=== PATIENT | female | born 1980 | race African-American/Black ===

== ENCOUNTER 2024-07-13 09:28 | Emergency (ER) | payer OTHER, SELFPAY ==
[~2024-07-13 09:28] MED LIST: Iopamidol 370 76% 100 ML VIAL ONE
[2024-07-13] MEDS ORDERED: Acetaminophen 500 MG TAB ONE (09:48)
[2024-07-13] MEDS ORDERED: Lactated Ringer's 1,000 ML ONE ×2 (09:56→11:36)
[2024-07-13] MEDS ORDERED: Ketorolac Tromethamine 30 MG (1 mL) VIAL ONE (09:56)
[2024-07-13 10:30] LABS: BHCG - Serum Negative (NEGATIVE); Pregs Control Background? CLEAR/WHITE (CLR/WHITE); Pregs Control Bar Appear? YES (CONTROL BAR)
[2024-07-13 10:31] LABS: INR-International Normal Ratio 1.2; Prothrombin Time 14.8 sec (12.0-14.7)
[2024-07-13 10:32] LABS: PTT 38.2 sec (22.9-36.1)
[2024-07-13] MEDS ORDERED: Azithromycin 500 MG VIAL ONE (10:35)
[2024-07-13] MEDS ORDERED: Sodium Chloride 0.9% 250 ML 250 ML ONE (10:35)
[2024-07-13 10:40] LABS: ALT (SGPT) 23 U/L (8-55); AST (SGOT) 11 U/L (5-34); Albumin 3.3 g/dL (3.5-5.0); Alkaline Phosphatase 199 U/L (40-110); Anion Gap 17 mmol/L (10-20); BUN (Urea Nitrogen) 20 mg/dL (7.0-18.7); Bilirubin, Total 1.1 mg/dL (0.2-1.2); Calc. Creatinine Clearance 0 mL/min (70-130); Carbon Dioxide 20 mmol/L (22-29); Estimated GFR 47; Globulin 4.1 g/dL (2.4-3.5); Glucose 172 mg/dL (70-105); Potassium 3.7 mmol/L (3.5-5.1); Protein, Total 7.4 g/dL (6.0-8.3); Sodium 137 mmol/L (136-145)
[2024-07-13 10:42] LABS: Troponin I Less than 0.010 ng/mL (< 0.028)
[2024-07-13 10:44] LABS: Band 4 % (5-11); Eosinophils 1 % (0-10); Hemoglobin 11.9 g/dL (12.0-16.0); Lymphocytes 3 % (21-51); MDiff Complete? YES; Manual Diff?? YES; Mean Corpuscular HGB CONC 31.3 g/dL (32.0-36.0); Mean Corpuscular Hemoglobin 30.1 pg (27.0-31.0); Mean Corpuscular Volume 96.2 fl (78.0-98.0); Mean Platelet Volume 6.8 fL (7.4-10.4); Monocytes 5 % (0-10); Neutrophil 84 % (42-75); Platelet Count 299 10x3/uL (130-400); RBC Distribution Width 12.3 % (11.5-14.5); Reactive Lymphocytes 3 % (0-10); Red Blood Cell (RBC) Count 3.96 mill/uL (4.20-5.40); White Blood Cell (WBC) Count 38.9 10x3/uL (4.8-10.8)
[2024-07-13 10:45] LABS: Platelet Adequacy Comment Appears Adequate
[2024-07-13 10:46] LABS: Chloride 104 mmol/L (98-107)
[2024-07-13] MEDS ORDERED: Lidocaine Viscous Sol 2% 15 ml UD Cup ONE (12:51)
[2024-07-13] MEDS ORDERED: Mag-Al 1200 mg/1200 mg/30 ML UDCUP ONE (12:51)
[2024-07-13 13:31] LABS: Troponin I Less than 0.010 ng/mL (< 0.028)
== END 2024-07-13 14:30 | disposition home or self-care (01) ==
LOC: MADERS 09:28
DX: J10.1 Influenza due to other identified influenza virus with other respiratory manifestations (principal); N17.9 Acute kidney failure, unspecified; D72.829 Elevated white blood cell count, unspecified; J18.9 Pneumonia, unspecified organism
CPT/HCPCS: 36415; 71046; 71275; 80053; 83605; 83880; 84484; 84703; 85025; 85379; 85610; 85730; 87040; 87081; 87400; 87426; 87430; 93005; 94760; 96365; 96374; J0456; J1885; J7050; J7120; Q9967